=== PATIENT | male | born 1980 | race Caucasian/White ===

== ENCOUNTER → 2023-04-26 15:18 | Outpatient (CLI) | payer OTHER, SELFPAY ==
--- NOTE | 2023-04-26 | DI.MRI.S_ITS ---
PROCEDURE: MR ANKLE LT WO CON INDICATIONS: ANKLE PAIN TECHNIQUE: Noncontrast sagittal T1 spin echo and T2 fast spin echo with fat saturation, axial proton density fast spin echo and T2 fast spin echo with fat saturation, coronal T1 spin echo and T2 fast spin echo with fat saturation through the ankle/hindfoot. COMPARISON: None. FINDINGS: Image quality: Excellent. Bones and joints: No bone marrow contusions or fractures. No hindfoot coalitions. No osteochondral injuries of the talar dome. Small amount of tibiotalar joint effusion, no gross loose bodies. Medial structures: The posterior tibialis tendon is thickened with intrasubstance T2 hyperintense signal and surrounding soft tissue edema at the level of medial malleolus extending to the level of talonavicular joint. flexor digitorum longus, and flexor hallucis longus tendons are intact. The posterior tibial neurovascular bundle appears normal within the tarsal tunnel, without extrinsic mass effect. The deltoid ligament and spring ligament are thickened. Lateral structures: The anterior talofibular, calcaneofibular, and posterior talofibular ligaments appear intact. More superiorly, the anterior and posterior tibiofibular ligaments appear intact, as is the intermalleolar ligament. The tibiofibular syndesmosis is normal in width at 2 mm or less. The peroneus tendons are normal in size. Moderate amount of fluid distending peroneus tendon sheath at the level of lateral malleolus tip extending to the level of calcaneocuboid joint is seen. The sinus tarsi demonstrates normal fatty signal, without edema, fibrosis, or cyst formation. Visualized sinus tarsi components (cervical ligament, interosseous talocalcaneal ligament, roots of the inferior extensor retinaculum) appear normal. The calcaneonavicular and calcaneocuboid components of the bifurcate ligament appear intact. The dorsal calcaneocuboid ligament appears intact. Anterior structures: The tibialis anterior, extensor hallucis longus, and extensor digitorum longus tendons appear intact. The dorsal talonavicular ligament appears intact. Posterior and plantar structures: Mildly thickened distal Achilles tendon extending to its posterior calcaneal insertion is seen. Focal thickening involving medial band of plantar fascia approximately 1.7 cm from its insertion on plantar calcaneus and measures up to 5 mm in size is noted. No abductor digiti quinti muscle atrophy to suggest Peck neuropathy. IMPRESSION: 1. Moderate grade tendinosis/intrasubstance partial-thickness tear involving posterior tibialis tendon at the level of lateral malleolus extending to the level of talonavicular joint. 2. Low to moderate grade tenosynovitis involving peroneus tendons at the level of lateral malleolus tip extending to the level of calcaneocuboid joint. 3. Distal Achilles tendinosis. No Achilles tendon rupture. 4. No marrow edema. No fracture or dislocation. No osteochondral injuries of talar dome. Small joint effusion, no gross loose bodies. 5. Low-grade medial ankle ligament sprain. No full-thickness ankle ligament rupture. 6. Tiny 5 mm nodular thickening involving medial band of plantar fascia approximately 1.7 cm from its insertion on plantar calcaneus, and may represent tiny plantar fibroma. Dictated by: Gee Rogers M.D. on 04/27/2023 at 9:15 Approved by: Gee Rogers M.D. on 04/27/2023 at 9:32
== END ==
LOC: MRI 15:19
PROVIDERS: Referring Provider Podiatrist; Visit Provider Podiatrist
DX: S96.812A Strain of other specified muscles and tendons at ankle and foot level, left foot, initial encounter (principal); M65.872 Other synovitis and tenosynovitis, left ankle and foot; M25.372 Other instability, left ankle; M25.572 Pain in left ankle and joints of left foot; R26.2 Difficulty in walking, not elsewhere classified
CPT/HCPCS: 73721

== ENCOUNTER → 2024-06-19 16:03 | Outpatient (CLI) | payer OTHER, SELFPAY ==
--- NOTE | 2024-06-19 16:05 | DI.MRI.S_ITS ---
PROCEDURE: MR KNEE RT WO CON INDICATIONS: PAIN IN RT KNEE TECHNIQUE: Noncontrast sagittal PD fast spin echo and T2 fast spin echo with fat saturation, sagittal 3-D FLASH with fat saturation; coronal T1 spin echo and PD fast spin echo with fat saturation, and axial PD fast spin echo with fat saturation through the knee. COMPARISON: None. FINDINGS: Image quality: Excellent. Menisci: Subtle signal abnormality involving posterior horn of medial meniscus extending to medial periphery of inferior articulating surface concerning for very subtle oblique tear in this area. The lateral meniscus is intact. Cruciate ligaments: The anterior cruciate ligament is mildly thickened with intrasubstance T2 hyperintense signal. The posterior cruciate ligament is intact. Medial structures: The medial collateral ligament appears thickened with surrounding edema near its femoral insertion. Visualized portions of the pes anserinus tendons appear normal. No abnormal bursal fluid. Lateral structures: The lateral collateral ligament, long and short heads of the biceps femoris tendon appear intact. The popliteus tendon appears normal. Iliotibial band appears normal. Anterior structures: Distal quadriceps tendinosis at its superior patellar insertion is seen. Proximal patellar tendinosis at its inferior patellar insertion is also seen. Patellar alignment is normal. 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 Low-grade chondromalacia is seen in medial femoral tibial compartment. No fracture or dislocation. Joint space: There is small knee joint fluid. No Aaron's cyst. Normal appearing synovial plicae are incidentally noted. IMPRESSION: 1. Subtle oblique tear involving posterior horn of medial meniscus extending to inferior articulating surface. No lateral meniscal tear. 2. Suggestion of low-grade ACL sprain. 3. Low to moderate grade proximal MCL sprain/partial-thickness tear. 4. Distal quadriceps tendinosis and proximal patellar tendinosis. 5. 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 No fracture or dislocation. Low-grade chondromalacia also seen in medial femoral tibial compartment. Small joint effusion, no loose bodies. Dictated by: Gee Rogers M.D. on 06/20/2024 at 11:07 Approved by: Gee Rogers M.D. on 06/20/2024 at 11:10
== END ==
PROVIDERS: Referring Provider Nurse Practitioner Family; Visit Provider Nurse Practitioner Family
DX: S83.241A Other tear of medial meniscus, current injury, right knee, initial encounter (principal); S83.411A Sprain of medial collateral ligament of right knee, initial encounter; M25.561 Pain in right knee; M22.41 Chondromalacia patellae, right knee; M25.461 Effusion, right knee
CPT/HCPCS: 73721